=== PATIENT | male | born 1955 | race Two or more races ===

== ENCOUNTER 2022-01-28 16:31 | Inpatient (IN) | payer MEDICARE, BC ==
[2022-01-28] MEDS ORDERED: MIDAZOLAM 1 MG/ML 5 ML VIAL IV STA (16:39)
[2022-01-28] MEDS ORDERED: ROCURONIUM 10 MG/ML (5 ML VIAL) IV STA (16:40)
[2022-01-28] MEDS ORDERED: AMIODARONE 360 MG in DEXTROSE 5% IN WATER 200 ML IV ONE ×2 (17:00)
[2022-01-28 17:04] LABS: HCT 44.3 % (39.0-53.0); HGB 13.6 gm/dL (13.0-17.5); MCH 30.5 pg (25.0-35.0); MCHC 30.7 g/dL (31.0-37.0); MCV 99.1 fL (80.0-100.0); Mean Platelet Volume 9.3; Platelet Count 396 k/uL (150-450); RBC 4.47 m/uL (4.30-5.90); RDW 14.4 % (11.5-15.5); WBC 31.8 k/uL (3.8-10.6)
[2022-01-28 17:10] LABS: Albumin 3.1 g/dL (3.5-5.0); Calcium 8.7 mg/dL (8.4-10.2); INR 0.9 (<1.2); Partial Thromboplastin Time 23.1 sec (22.0-30.0); Potassium 3.5 mmol/L (3.5-5.1); Total Protein 5.6 g/dL (6.3-8.2)
[2022-01-28] MEDS: SODIUM CHLORIDE 0.9% 1,000 ML IV SCH ×2 (17:14→23:57)
[2022-01-28] MEDS ORDERED: cefTRIAXone IN SWFI 1,000 MG/10 ML SYRINGE IVP STA (17:18)
[2022-01-28] MEDS ORDERED: SODIUM CHLORIDE 0.9% 1,000 ML IV ONE (17:19)
[2022-01-28 17:23] LABS: Band Neutrophils % 6 %; Lymphocytes # (M) 3.18 k/uL (1.0-4.8); Monocytes # (M) 2.54 k/uL (0-1.0); Neutrophils % (M) 76 %; Nucleated Red Blood Cells 0 /100 WBC (0-0); Total Cells Counted 100
[2022-01-28 17:25] LABS: Hypochromasia Slight
[2022-01-28 17:38] LABS: ABG Base Excess -6.3 mmol/L; ABG HCO3 22 mmol/L (21-25); ABG Oxygen Saturation 99.7 % (94-97); ABG PCO2 56 mmHg (35-45); ABG PO2 303 mmHg (83-108); ABG TCO2 23 mmol/L (19-24); Allen Test Performed? Yes
--- NOTE | 2022-01-28 17:39 | XR ---
EXAMINATION TYPE: XR chest 1V portable DATE OF EXAM: 01/28/2022 COMPARISON: NONE HISTORY: Postintubation TECHNIQUE: Single view FINDINGS: Endotracheal tube is 5 cm from the ross. There is some mild infiltrate and atelectasis le ft lower lobe. Right lung is clear. No heart failure. There are chest leads. There is nasogastric tub e and the tip is overlying the distal esophagus. IMPRESSION: Nasogastric tube is not in the stomach. Distended gas-filled stomach. Mild infiltrate or atelectasis left lung base.
--- NOTE | 2022-01-28 18:11 | ED ---
General Adult HPI - General Chief complaint: Cardiac Arrest/CPR Stated complaint: Unresponsive Time Seen by Provider: 01/28/22 16:39 Source: family, EMS, RN notes reviewed, old records reviewed Mode of arrival: EMS Limitations: altered mental status, physical limitation - History of Present Illness Initial comments: 66-year-old male presenting for evaluation of cardiac arrest. Patient was found to be in ventricular fibrillations Paramedics upon arrival. His had initiated CPR with an unknown down time prior to initiating CPR, this may have been very short or upwards of 30 minutes. He had about 45 minute transport time. He received multiple defibrillations, epinephrine, amiodarone, magnesium during transport. He received compressions with the Rusty compression device. Patient did have several episodes of near complex rhythm with a pulse during transport. At the time of arrival he had a Tommie airway and was in sinus rhythm. Past medical history of peripheral vascular disease status post aortic bypass and left below the knee amputation. Remote history of tobacco use. The does not report any history of CAD. He had not been feeling well for several days. The did not report any chest pain. - Related Data Home Medications Medication Instructions Recorded Confirmed Acetaminophen [Tylenol 8 Hour] 650 - 1,300 mg PO Q8H PRN 01/28/22 01/28/22 Amitriptyline HCl [Elavil] 25 mg PO HS 01/28/22 01/28/22 Aspirin EC [Ecotrin Low Dose] 81 mg PO DAILY 01/28/22 01/28/22 Docusate [Colace] 100 mg PO DAILY 01/28/22 01/28/22 Ibuprofen [Motrin] 800 mg PO TID PRN 01/28/22 01/28/22 Tamsulosin [Flomax] 0.4 mg PO DAILY 01/28/22 01/28/22 amLODIPine [Norvasc] 10 mg PO DAILY 01/28/22 01/28/22 Allergies Allergy/AdvReac Type Severity Reaction Status Date / Time No Known Allergies Allergy Verified 01/28/22 19:19 Review of Systems ROS Statement: Those systems with pertinent positive or pertinent negative responses have been documented in the HPI. ROS Other: All systems not noted in ROS Statement are negative. Past Medical History Additional Past Medical History / Comment(s): prostate cx History of Any Multi-Drug Resistant Organisms: Unobtainable Past Surgical History: No Surgical Hx Reported Past Psychological History: No Psychological Hx Reported Smoking Status: Unknown if ever smoked Past Alcohol Use History: Unable to Obtain Past Drug Use History: Unable to Obtain - Past Family History Father Family Medical History: Hypertension General Exam Limitations: no limitations General appearance: obtunded Head exam: Present: atraumatic, normocephalic Eye exam: Present: normal appearance, PERRL ENT exam: Present: other (Tommie airway) Respiratory exam: Present: other (Agonal respirations bilateral breath sounds with BVM). Absent: respiratory distress Cardiovascular Exam: Present: regular rate, normal rhythm GI/Abdominal exam: Present: soft, distended. Absent: tenderness, guarding, rebound Extremities exam: Present: other (Left [id number] a petition). Absent: pedal edema Neurological exam: Present: other (Pupils are 3 mm and sluggish. There is no s pontaneous movement. No withdrawal to pain.) Skin exam: Present: warm, dry, intact. Absent: cyanosis, diaphoretic Course Vital Signs 01/28/22 01/28/22 01/28/22 16:32 16:35 16:51 Temperature 97.8 F Pulse Rate 103 H 115 H Pulse Rate [ 103 H Adult Literacy Instructor ] Respiratory 5 L 12 20 Rate Blood Pressure 150/93 153/88 O2 Sat by Pulse 98 100 Oximetry 01/28/22 01/28/22 01/28/22 18:18 18:42 20:00 Temperature 97.8 F Pulse Rate 107 H 97 93 Pulse Rate [ Adult Literacy Instructor ] Respiratory 22 22 22 Rate Blood Pressure 107/81 102/76 110/78 O2 Sat by Pulse 94 L 100 95 Oximetry EKG Findings - EKG Comments: EKG Findings:: EKG sinus tachycardia with PVC depression in the precordial leads no ST segment elevation. Rate of 106, MT interval 156, QRS duration 112 Procedures - Central Line Placement Right Femoral Consent Obtained: emergent situation Patient Placed on Monitor/Pulse Ox: Yes MD Prep: mask, gloves Central Line Prep: Chlorhexidine scrub, sterile drapes applied Ultrasound Used for Placement: Yes Central Line Lumen Inserted: triple Bloods Obtained for Lab: Yes Central Line Position: good blood return, all ports aspirated, flushed, capped, sutured in place with 3-0 nylon Dressing Applied: Tegaderm Patient Tolerated Procedure: well Complications: none - Intubation Sedative: Versed Mg Given: 5 Paralytic: Rocuronium Mg Given: 50 Laryngoscope: Nichol Size: 3 ET Tube Size: 7.5 ET Tube Uncuffed: No Tube Secured Depth (cm): 23 Tube Secured Location: lips Tube Placement Confirmation: visualized tube passing through cords, equal breath sounds bilaterally, no breath sounds over epigastrium, confirmation by capnometry Patient Tolerated Procedure: well Intubation Complications: none Medical Decision Making - Medical Decision Making 66-year-old male presenting with out of Hospital cardiac arrest. Down time roughly 45-60 minutes. Patient does have signs of life upon arrival. He is in a narrow complex rhythm with a stable blood pressure. He has rate sluggish but reactive pupils. He is initially breathing spontaneously. No purposeful movement. He was intubated upon arrival. Central line placed in the emergency department. He is continued on amiodarone. I discussed case at the onset with radiation oncology therapist Dr. Tejada and career center director Dr. Zamora. He does have signs of UTI with high white blood cell count. He is started on IV antibiotics. Additionally given the elevated troponin and ventricular fibrillation arrest he is started on heparin after head CT is negative for intracranial hemorrhage. He will be admitted to the ICU. - Lab Data Result diagrams: 01/29/22 02:25 01/29/22 02:25 Lab Results 01/28/22 01/28/22 01/28/22 Range/Units 16:43 16:43 16:43 WBC 31.8 H (3.8-10.6) k/uL RBC 4.47 (4.30-5.90) m/uL Hgb 13.6 (13.0-17.5) gm/dL Hct 44.3 (39.0-53.0) % MCV 99.1 (80.0-100.0) fL MCH 30.5 (25.0-35.0) pg MCHC 30.7 L (31.0-37.0) g/dL RDW 14.4 (11.5-15.5) % Plt Count 396 (150-450) k/uL MPV 9.3 Neutrophils % (Manual) 76 % Band Neuts % (Manual) 6 % Lymphocytes % (Manual) 10 % Monocytes % (Manual) 8 % Neutrophils # (Manual) 26.00 H (1.3-7.7) k/uL Lymphocytes # (Manual) 3.18 (1.0-4.8) k/uL Monocytes # (Manual) 2.54 H (0-1.0) k/uL Nucleated RBCs 0 (0-0) /100 WBC Manual Slide Review Performed Hypochromasia Slight PT 10.0 (9.0-12.0) sec INR 0.9 (<1.2) APTT 23.1 (22.0-30.0) sec Sample Site ABG pH (7.35-7.45) ABG pCO2 (35-45) mmHg ABG pO2 (83-108) mmHg ABG HCO3 (21-25) mmol/L ABG Total CO2 (19-24) mmol/L ABG O2 Saturation (94-97) % ABG Base Excess mmol/L Elan Test FiO2 % Sodium 132 L (137-145) mmol/L Potassium 3.5 (3.5-5.1) mmol/L Chloride 97 L (98-107) mmol/L Carbon Dioxide 16 L (22-30) mmol/L Anion Gap 19 mmol/L BUN 27 H (9-20) mg/dL Creatinine 1.30 H (0.66-1.25) mg/dL Est GFR (CKD-EPI)AfAm 65 (>60 ml/min/1.73 sqM) Est GFR (CKD-EPI)NonAf 56 (>60 ml/min/1.73 sqM) Glucose 584 H* (74-99) mg/dL Plasma Lactic Acid Jhon (0.7-2.0) mmol/L Calcium 8.7 (8.4-10.2) mg/dL Magnesium 4.0 H (1.6-2.3) mg/dL Total Bilirubin 1.0 (0.2-1.3) mg/dL AST 114 H (17-59) U/L ALT 57 H (4-49) U/L Alkaline Phosphatase 175 H (38-126) U/L Troponin I (0.000-0.034) ng/mL Total Protein 5.6 L (6.3-8.2) g/dL Albumin 3.1 L (3.5-5.0) g/dL Urine Color Urine Appearance (Clear) Urine pH (5.0-8.0) Ur Specific [place] (1.001-1.035) Urine Protein (Negative) Urine Glucose (UA) (Negative) Urine Ketones (Negative) Urine Blood (Negative) Urine Nitrite (Negative) Urine Bilirubin (Negative) Urine Urobilinogen (<2.0) mg/dL Ur Leukocyte Esterase (Negative) Urine RBC (0-5) /hpf Urine WBC (0-5) /hpf Urine WBC Clumps (None) /hpf Ur Squamous Epith Cells (0-4) /hpf Urine Mucus (None) /hpf 01/28/22 01/28/22 01/28/22 Range/Units 16:43 17:26 17:31 WBC (3.8-10.6) k/uL RBC (4.30-5.90) m/uL Hgb (13.0-17.5) gm/dL Hct (39.0-53.0) % MCV (80.0-100.0) fL MCH (25.0-35.0) pg MCHC (31.0-37.0) g/dL RDW (11.5-15.5) % Plt Count (150-450) k/uL MPV Neutrophils % (Manual) % Band Neuts % (Manual) % Lymphocytes % (Manual) % Monocytes % (Manual) % Neutrophils # (Manual) (1.3-7.7) k/uL Lymphocytes # (Manual) (1.0-4.8) k/uL Monocytes # (Manual) (0-1.0) k/uL Nucleated RBCs (0-0) /100 WBC Manual Slide Review Hypochromasia PT (9.0-12.0) sec INR (<1.2) APTT (22.0-30.0) sec Sample Site rrad ABG pH 7.20 L (7.35-7.45) ABG pCO2 56 H (35-45) mmHg ABG pO2 303 H (83-108) mmHg ABG HCO3 22 (21-25) mmol/L ABG Total CO2 23 (19-24) mmol/L ABG O2 Saturation 99.7 H (94-97) % ABG Base Excess -6.3 mmol/L Elan Test Yes FiO2 100 % Sodium (137-145) mmol/L Potassium (3.5-5.1) mmol/L Chloride (98-107) mmol/L Carbon Dioxide (22-30) mmol/L Anion Gap mmol/L BUN (9-20) mg/dL Creatinine (0.66-1.25) mg/dL Est GFR (CKD-EPI)AfAm (>60 ml/min/1.73 sqM) Est GFR (CKD-EPI)NonAf (>60 ml/min/1.73 sqM) Glucose (74-99) mg/dL Plasma Lactic Acid Jhon 2.3 H* (0.7-2.0) mmol/L Calcium (8.4-10.2) mg/dL Magnesium (1.6-2.3) mg/dL Total Bilirubin (0.2-1.3) mg/dL AST (17-59) U/L ALT (4-49) U/L Alkaline Phosphatase (38-126) U/L Troponin I 0.085 H* (0.000-0.034) ng/mL Total Protein (6.3-8.2) g/dL Albumin (3.5-5.0) g/dL Urine Color Urine Appearance (Clear) Urine pH (5.0-8.0) Ur Specific [place] (1.001-1.035) Urine Protein (Negative) Urine Glucose (UA) (Negative) Urine Ketones (Negative) Urine Blood (Negative) Urine Nitrite (Negative) Urine Bilirubin (Negative) Urine Urobilinogen (<2.0) mg/dL Ur Leukocyte Esterase (Negative) Urine RBC (0-5) /hpf Urine WBC (0-5) /hpf Urine WBC Clumps (None) /hpf Ur Squamous Epith Cells (0-4) /hpf Urine Mucus (None) /hpf 01/28/22 Range/Units 17:31 WBC (3.8-10.6) k/uL RBC (4.30-5.90) m/uL Hgb (13.0-17.5) gm/dL Hct (39.0-53.0) % MCV (80.0-100.0) fL MCH (25.0-35.0) pg MCHC (31.0-37.0) g/dL RDW (11.5-15.5) % Plt Count (150-450) k/uL MPV Neutrophils % (Manual) % Band Neuts % (Manual) % Lymphocytes % (Manual) % Monocytes % (Manual) % Neutrophils # (Manual) (1.3-7.7) k/uL Lymphocytes # (Manual) (1.0-4.8) k/uL Monocytes # (Manual) (0-1.0) k/uL Nucleated RBCs (0-0) /100 WBC Manual Slide Review Hypochromasia PT (9.0-12.0) sec INR (<1.2) APTT (22.0-30.0) sec Sample Site ABG pH (7.35-7.45) ABG pCO2 (35-45) mmHg ABG pO2 (83-108) mmHg ABG HCO3 (21-25) mmol/L ABG Total CO2 (19-24) mmol/L ABG O2 Saturation (94-97) % ABG Base Excess mmol/L Elan Test FiO2 % Sodium (137-145) mmol/L Potassium (3.5-5.1) mmol/L Chloride (98-107) mmol/L Carbon Dioxide (22-30) mmol/L Anion Gap mmol/L BUN (9-20) mg/dL Creatinine (0.66-1.25) mg/dL Est GFR (CKD-EPI)AfAm (>60 ml/min/1.73 sqM) Est GFR (CKD-EPI)NonAf (>60 ml/min/1.73 sqM) Glucose (74-99) mg/dL Plasma Lactic Acid Jhon (0.7-2.0) mmol/L Calcium (8.4-10.2) mg/dL Magnesium (1.6-2.3) mg/dL Total Bilirubin (0.2-1.3) mg/dL AST (17-59) U/L ALT (4-49) U/L Alkaline Phosphatase (38-126) U/L Troponin I (0.000-0.034) ng/mL Total Protein (6.3-8.2) g/dL Albumin (3.5-5.0) g/dL Urine Color Yellow Urine Appearance Turbid (Clear) Urine pH 5.5 (5.0-8.0) Ur Specific [place] 1.023 (1.001-1.035) Urine Protein 2+ H (Negative) Urine Glucose (UA) 4+ H (Negative) Urine Ketones Negative (Negative) Urine Blood Large H (Negative) Urine Nitrite Negative (Negative) Urine Bilirubin Negative (Negative) Urine Urobilinogen <2.0 (<2.0) mg/dL Ur Leukocyte Esterase Large H (Negative) Urine RBC 98 H (0-5) /hpf Urine WBC >182 H (0-5) /hpf Urine WBC Clumps Many H (None) /hpf Ur Squamous Epith Cells <1 (0-4) /hpf Urine Mucus Few H (None) /hpf Critical Care Time Critical Care Time: Yes Total Critical Care Time: 35 Disposition Clinical Impression: Cardiac arrest, Ventricular fibrillation, UTI (urinary tract infection) Disposition: ADMITTED IP TO THIS HOSP Is patient prescribed a controlled substance at d/c from ED?: No Time of Disposition: 19:05
[2022-01-28] MEDS ORDERED: METOPROLOL TARTRATE 5 MG/5 ML VIAL IVP STA (18:17)
[2022-01-28] MEDS ORDERED: NALOXONE 0.4 MG/ML 1 ML VIAL IV PRN (18:18)
[2022-01-28] MEDS ORDERED: MORPHINE SULFATE 4 MG/ML SYRINGE IV PRN (18:18)
[2022-01-28] MEDS ORDERED: ACETAMINOPHEN SUPPOSITORY 650 MG SUPP RECTAL PRN (18:18)
[2022-01-28] MEDS ORDERED: PANTOPRAZOLE 40 MG/10 ML VIAL IVP STA (18:19)
[2022-01-28 18:45] LABS: Appearance,Urine Turbid (Clear); Bilirubin,Urine Negative (Negative); Blood,Urine Large (Negative); Color,Urine Yellow; Glucose,Urine (UA) 4+ (Negative); Ketones,Urine Negative (Negative); Leukocyte Esterase,Urine Large (Negative); Mucus,Urine Few /hpf; Nitrite,Urine Negative (Negative); PH, Urine 5.5 (5.0-8.0); Protein,Urine 2+ (Negative); RBC,Urine 98 /hpf (0-5); Specific Gravity,Urine 1.023 (1.001-1.035); Squamous Epithelial Cell,Urine <1 /hpf (0-4); Urobilinogen,Urine <2.0 mg/dL (<2.0); WBC,Urine >182 /hpf (0-5)
--- NOTE | 2022-01-28 18:55 | CT ---
EXAMINATION TYPE: CT brain wo con DATE OF EXAM: 01/28/2022 COMPARISON: None HISTORY: s/p cardiac arrest CT DLP: 1137.4 mGycm Automated exposure control for dose reduction was used. Ventricles have normal size. There is no mass effect or midline shift. There is no sign of intracrani al hemorrhage. Calvarium is intact. There is normal aeration of the mastoid sinuses. IMPRESSION: Negative unenhanced head CT scan.
[2022-01-28] MEDS ORDERED: HEPARIN SODIUM 1,000 UN/ML (10ML VL) IV PRN (18:59)
[2022-01-28] MEDS ORDERED: HEPARIN SODIUM 1,000 UN/ML (10ML VL) IV ONE (18:59)
[2022-01-28] MEDS ORDERED: HEPARIN SOD,PORK IN 0.45% NACL 25,000 UNIT in 0.45% NACL 1 250ML.BAG IV SCH (19:45)
[2022-01-28 21:09] LABS: Glucose,Whole Blood 473 mg/dL (75-99)
[2022-01-28] MEDS ORDERED: INSULIN REGULAR 100 UNIT/ML VIAL (IV) IV ONE (21:15)
[2022-01-28 21:44] LABS: Glucose,Whole Blood 462 mg/dL (75-99)
[2022-01-28] MEDS ORDERED: LACTATED RINGERS 1,000 ML IV SCH (22:30)
[2022-01-28 22:39] LABS: Calcium 7.9 mg/dL (8.4-10.2); Potassium 3.6 mmol/L (3.5-5.1)
[2022-01-28] MEDS ORDERED: AMIODARONE 450 MG in DEXTROSE 5% IN WATER 250 ML IV SCH ×2 (23:00)
[2022-01-28] MEDS ORDERED: ASPIRIN 81 MG PO STA (23:03)
[2022-01-28 23:49] LABS: Glucose,Whole Blood 345 mg/dL (75-99)
[2022-01-29] MEDS ORDERED: INSULIN ASPART (NovoLOG) 100 UNIT/ML VIAL SQ SCH
[2022-01-29 00:21] VITALS: TEMP 97.5
[2022-01-29] MEDS ORDERED: LIDOCAINE-D5W PMX 2G/250ML 8 MG/ML IV ONE (00:25)
[2022-01-29] MEDS ORDERED: LIDOCAINE-D5W PMX 2G/250ML 2,000 MG in DEXTROSE/WATER 1 250ML.BAG IV SCH (00:30)
[2022-01-29] MEDS ORDERED: VANCOMYCIN IV PER PHARMACY 1 EACH MISC MISCELLANE PRN (00:30)
[2022-01-29] MEDS ORDERED: PIPERACILLIN-TAZOBACTAM 3.375 GM in SODIUM CHLORIDE 0.9% 100 ML IVPB SCH (01:00)
[2022-01-29] MEDS ORDERED: NOREPINEPHRINE 8 MG in SODIUM CHLORIDE 0.9% 250 ML IV SCH (01:00)
[2022-01-29] MEDS ORDERED: VANCOMYCIN 1,500 MG in SODIUM CHLORIDE 0.9% 250 ML IVPB ONE (01:00)
--- NOTE | 2022-01-29 01:04 | P.HPIM ---
History of Present Illness H&P Date: 01/28/22 The patient is a 66 -year-old male with a PMH of PVD s/p L BKA, aortic bypass, Type 2 DM, carotid artery stenosis, BPH, and recent UTI, poor f/u with physicians who was brought to the ED for cardiac arrest. The history obtained from the patient's via phone and the ED physician as the patient was intubated at the time of evaluation. The patient was reportedly found by the gasping for air in his bed at 3:45 PM. She previously saw him at 3:15 PM, when he was at his baseline. Upon discovering him, she immediately activated EMS and started CPR. The patient had nearly a 45 minute transport time during which he was intubated and received multiple defibrillations for V. fib/pulseless V. tach arrest and was given amiodarone, epinephrine, and IV magnesium. The patient's reports that he had not been feeling well over the past week and recently had a Benitez catheter removed. He had also complained of fever with chills at home The denied reports of chest discomfort or shortness of breath. EKG emergency room revealed sinus rhythm with PVCs at [address] segment depression noted in the precordial leads. CT brain in the emergency room was unremarkable. Chest x-ray revealed mild left lung base infiltrate. Laboratory evaluation was remarkable for troponin of 0.085, UA grossly abnormal, glucose 584, lactic acid 2.3, BUN 27, creatinine 1.3, and WBC count 31.8. Review of systems: Unable to perform, patient intubated Physical examination: General: non toxic, intubated male, no distress, appears at stated age, normal weight Derm: no unusual rashes/lesions no unusual ecchymoses, warm, dry Head: atraumatic, normocephalic, symmetric Eyes: Anicteric sclera, pupils equal round reactive to light ENT: Nose and ears atraumatic Neck: No thyromegaly, no cervical lymphadenopathy, trachea midline, supple Mouth: no lip lesion Cardiovascular: S1S2 reg, no murmur, positive posterior tibial pulse R-side, no edema, capillary refill less than 2 seconds Lungs: CTA bilateral, no rhonchi, no rales , no accessory muscle use Abdominal: soft, no appreciable organomegaly Ext: Unable to assess, patient sedated and intubated, no contractures Neuro: Patient groans on sternal rub Psych: Unable to assess Assessment/plan V-fib arrest, unclear etiology -Continue with ventilator bundle -Cardiology recommended amiodarone infusion along with heparin infusion -Empiric broad-spectrum antibiotics given with recent history of fever at home with UTI -Follow-up blood cultures -Trend troponin -Continue ICU level of care Chronic conditions: Type II DM, peripheral vascular disease, BPH -Insulin sliding scale and blood glucose monitoring DVT prophylaxis -Heparin infusion The patient is admitted with an anticipated greater than 2 midnight stay for evaluation of cardiac arrest CODE STATUS: Full Code Discussed with: , family Anticipated discharge date: 2-[address]: Home Past Medical History Past Medical History: Coronary Artery Disease (CAD), Hyperlipidemia, Hypertension, Prostate Disorder Additional Past Medical History / Comment(s): prostate cx?, L BKA, L groin bypass 2019, x smoker, History of Any Multi-Drug Resistant Organisms: None Reported Past Surgical History: No Surgical Hx Reported Past Anesthesia/Blood Transfusion Reactions: No Reported Reaction Smoking Status: Former smoker - Past Family History Father Family Medical History: Hypertension Medications and Allergies Home Medications Medication Instructions Recorded Confirmed Type Acetaminophen [Tylenol 8 Hour] 650 - 1,300 mg PO Q8H PRN 01/28/22 01/28/22 History Amitriptyline HCl [Elavil] 25 mg PO HS 01/28/22 01/28/22 History Aspirin EC [Ecotrin Low Dose] 81 mg PO DAILY 01/28/22 01/28/22 History Docusate [Colace] 100 mg PO DAILY 01/28/22 01/28/22 History Ibuprofen [Motrin] 800 mg PO TID PRN 01/28/22 01/28/22 History Tamsulosin [Flomax] 0.4 mg PO DAILY 01/28/22 01/28/22 History amLODIPine [Norvasc] 10 mg PO DAILY 01/28/22 01/28/22 History Allergies Allergy/AdvReac Type Severity Reaction Status Date / Time No Known Allergies Allergy Verified 01/28/22 19:19 Physical Exam Vitals: Vital Signs Temp Pulse Pulse Resp BP Pulse Ox 01/29/22 00:15 86 27 H 136/85 98 01/29/22 00:00 97.5 F L 66 29 H 113/84 99 01/28/22 23:45 78 29 H 86/57 100 01/28/22 23:30 66 16 98/66 100 01/28/22 23:15 76 26 H 96/81 100 01/28/22 23:00 84 29 H 111/71 99 01/28/22 22:40 97.8 F 81 32 H 107/73 100 01/28/22 22:30 84 28 H 86/60 98 01/28/22 22:20 85 29 H 99 01/28/22 22:10 79 19 99 01/28/22 22:00 78 29 H 102/75 99 01/28/22 21:50 80 01/28/22 21:41 86 01/28/22 20:00 97.8 F 93 22 110/78 95 01/28/22 18:42 97 22 102/76 100 01/28/22 18:18 107 H 22 107/81 94 L 01/28/22 16:51 115 H 20 153/88 100 01/28/22 16:35 97.8 F 103 H 12 150/93 98 01/28/22 16:32 103 H 5 L Intake and Output 01/28/22 01/28/22 01/29/22 14:59 22:59 06:59 Intake Total 1021.092 272.247 Output Total 350 100 Balance 671.092 172.247 Intake: IV 1000 260 Sodium Chloride 0.9% 1, 260 000 ml @ 130 mls/hr IV . Q7H42M [facility] Rx#:[id number] Sodium Chloride 0.9% 1, 1000 000 ml @ 999 mls/hr IV . Q1H1M [facility] Rx#:[id number] Intake, IV Titration .092 12.247 Amount propofoL 1,000 mg In .092 12.247 Empty Bag 1 bag @ 5 MCG/ KG/MIN 2.041 mls/hr IV . Q24H [facility] Rx#:[id number] Output: Urine 350 100 Other: Voiding Method Indwelling Catheter Indwelling Catheter Weight 68.039 kg 68.039 kg Results CBC & Chem 7: 01/29/22 02:25 01/29/22 02:25 Labs: Abnormal Lab Results - Last 24 Hours (Table) 01/28/22 01/28/22 01/28/22 Range/Units 16:43 16:43 16:43 WBC 31.8 H (3.8-10.6) k/uL MCHC 30.7 L (31.0-37.0) g/dL Neutrophils # (Manual) 26.00 H (1.3-7.7) k/uL Monocytes # (Manual) 2.54 H (0-1.0) k/uL ABG pH (7.35-7.45) ABG pCO2 (35-45) mmHg ABG pO2 (83-108) mmHg ABG O2 Saturation (94-97) % Sodium 132 L (137-145) mmol/L Chloride 97 L (98-107) mmol/L Carbon Dioxide 16 L (22-30) mmol/L BUN 27 H (9-20) mg/dL Creatinine 1.30 H (0.66-1.25) mg/dL Glucose 584 H* (74-99) mg/dL POC Glucose (mg/dL) (75-99) mg/dL Plasma Lactic Acid Jhon (0.7-2.0) mmol/L Calcium (8.4-10.2) mg/dL Magnesium 4.0 H (1.6-2.3) mg/dL AST 114 H (17-59) U/L ALT 57 H (4-49) U/L Alkaline Phosphatase 175 H (38-126) U/L Troponin I 0.085 H* (0.000-0.034) ng/mL Total Protein 5.6 L (6.3-8.2) g/dL Albumin 3.1 L (3.5-5.0) g/dL Urine Protein (Negative) Urine Glucose (UA) (Negative) Urine Blood (Negative) Ur Leukocyte Esterase (Negative) Urine RBC (0-5) /hpf Urine WBC (0-5) /hpf Urine WBC Clumps (None) /hpf Urine Mucus (None) /hpf 01/28/22 01/28/22 01/28/22 Range/Units 17:26 17:31 17:31 WBC (3.8-10.6) k/uL MCHC (31.0-37.0) g/dL Neutrophils # (Manual) (1.3-7.7) k/uL Monocytes # (Manual) (0-1.0) k/uL ABG pH 7.20 L (7.35-7.45) ABG pCO2 56 H (35-45) mmHg ABG pO2 303 H (83-108) mmHg ABG O2 Saturation 99.7 H (94-97) % Sodium (137-145) mmol/L Chloride (98-107) mmol/L Carbon Dioxide (22-30) mmol/L BUN (9-20) mg/dL Creatinine (0.66-1.25) mg/dL Glucose (74-99) mg/dL POC Glucose (mg/dL) (75-99) mg/dL Plasma Lactic Acid Jhon 2.3 H* (0.7-2.0) mmol/L Calcium (8.4-10.2) mg/dL Magnesium (1.6-2.3) mg/dL AST (17-59) U/L ALT (4-49) U/L Alkaline Phosphatase (38-126) U/L Troponin I (0.000-0.034) ng/mL Total Protein (6.3-8.2) g/dL Albumin (3.5-5.0) g/dL Urine Protein 2+ H (Negative) Urine Glucose (UA) 4+ H (Negative) Urine Blood Large H (Negative) Ur Leukocyte Esterase Large H (Negative) Urine RBC 98 H (0-5) /hpf Urine WBC >182 H (0-5) /hpf Urine WBC Clumps Many H (None) /hpf Urine Mucus Few H (None) /hpf 01/28/22 01/28/22 01/28/22 Range/Units 19:59 21:07 21:43 WBC (3.8-10.6) k/uL MCHC (31.0-37.0) g/dL Neutrophils # (Manual) (1.3-7.7) k/uL Monocytes # (Manual) (0-1.0) k/uL ABG pH (7.35-7.45) ABG pCO2 (35-45) mmHg ABG pO2 (83-108) mmHg ABG O2 Saturation (94-97) % Sodium (137-145) mmol/L Chloride (98-107) mmol/L Carbon Dioxide (22-30) mmol/L BUN (9-20) mg/dL Creatinine (0.66-1.25) mg/dL Glucose (74-99) mg/dL POC Glucose (mg/dL) 473 H 462 H (75-99) mg/dL Plasma Lactic Acid Jhon (0.7-2.0) mmol/L Calcium (8.4-10.2) mg/dL Magnesium (1.6-2.3) mg/dL AST (17-59) U/L ALT (4-49) U/L Alkaline Phosphatase (38-126) U/L Troponin I 1.130 H* (0.000-0.034) ng/mL Total Protein (6.3-8.2) g/dL Albumin (3.5-5.0) g/dL Urine Protein (Negative) Urine Glucose (UA) (Negative) Urine Blood (Negative) Ur Leukocyte Esterase (Negative) Urine RBC (0-5) /hpf Urine WBC (0-5) /hpf Urine WBC Clumps (None) /hpf Urine Mucus (None) /hpf 01/28/22 01/28/22 Range/Units 22:24 23:47 WBC (3.8-10.6) k/uL MCHC (31.0-37.0) g/dL Neutrophils # (Manual) (1.3-7.7) k/uL Monocytes # (Manual) (0-1.0) k/uL ABG pH (7.35-7.45) ABG pCO2 (35-45) mmHg ABG pO2 (83-108) mmHg ABG O2 Saturation (94-97) % Sodium (137-145) mmol/L Chloride (98-107) mmol/L Carbon Dioxide 18 L (22-30) mmol/L BUN 29 H (9-20) mg/dL Creatinine (0.66-1.25) mg/dL Glucose 409 H (74-99) mg/dL POC Glucose (mg/dL) 345 H (75-99) mg/dL Plasma Lactic Acid Jhon (0.7-2.0) mmol/L Calcium 7.9 L (8.4-10.2) mg/dL Magnesium (1.6-2.3) mg/dL AST (17-59) U/L ALT (4-49) U/L Alkaline Phosphatase (38-126) U/L Troponin I (0.000-0.034) ng/mL Total Protein (6.3-8.2) g/dL Albumin (3.5-5.0) g/dL Urine Protein (Negative) Urine Glucose (UA) (Negative) Urine Blood (Negative) Ur Leukocyte Esterase (Negative) Urine RBC (0-5) /hpf Urine WBC (0-5) /hpf Urine WBC Clumps (None) /hpf Urine Mucus (None) /hpf Microbiology - Last 24 Hours (Table) 01/28/22 17:31 Urine Culture - Preliminary Urine,Voided
--- NOTE | 2022-01-29 01:07 | P.PN ---
Progress Note - Text Progress Note Date: 01/29/22 CODE BLUE note Activated at 0016 for V. fib arrest. Arrived at the scene shortly after. The p atient had achieved ROSC following fibrillation with 120 J. No IV push medications were given. Total CPR of 30 seconds was performed. The patient's was informed. Cardiology was notified.
--- NOTE | 2022-01-29 01:09 | XR ---
EXAMINATION TYPE: XR chest 1V portable DATE OF EXAM: 01/29/2022 COMPARISON: NONE HISTORY: Cardiac arrest TECHNIQUE: Single view FINDINGS: Heart is normal. Lungs are clear of consolidation. There is endotracheal tube 6 cm from the ross. There is nasogastric tube in the stomach. There are no hilar masses. There are chest leads. IMPRESSION: No active cardiopulmonary disease. There is clearing of the pleural reaction left lung ba se compared to yesterday.
[2022-01-29 01:59] LABS: Glucose,Whole Blood 307 mg/dL (75-99)
[2022-01-29 02:04] LABS: ABG Base Excess -9.3 mmol/L; ABG HCO3 19 mmol/L (21-25); ABG Oxygen Saturation 92.8 % (94-97); ABG PCO2 46 mmHg (35-45); ABG PH 7.22 (7.35-7.45); ABG PO2 77 mmHg (83-108); ABG TCO2 20 mmol/L (19-24); Allen Test Performed? Yes
[2022-01-29] MEDS ORDERED: CISATRACURIUM 200 MG in SODIUM CHLORIDE 0.9% 180 ML IV SCH (02:30)
[2022-01-29] MEDS ORDERED: CISATRACURIUM 2 MG/ML 5 ML VIAL IV ONE ×2 (02:30→02:31)
[2022-01-29 02:44] LABS: Basophils % (A) 0 %; Eosinophils % (A) 0 %; HCT 48.5 % (39.0-53.0); HGB 15.2 gm/dL (13.0-17.5); Hypochromasia Moderate; Lymphocytes # (A) 0.9 k/uL (1.0-4.8); Lymphocytes % (A) 14 %; MCH 30.7 pg (25.0-35.0); MCHC 31.3 g/dL (31.0-37.0); Mean Platelet Volume 8.9; Monocytes # (A) 0.3 k/uL (0-1.0); Monocytes % (A) 5 %; Neutrophils % (A) 80 %; Platelet Count 270 k/uL (150-450); Poikilocytosis Slight; RBC 4.95 m/uL (4.30-5.90); RDW 14.6 % (11.5-15.5); WBC 6.2 k/uL (3.8-10.6)
[2022-01-29] MEDS ORDERED: VERAPAMIL 2.5 MG/ML 2 ML AMP ONE (02:49)
[2022-01-29] MEDS ORDERED: HEPARIN SODIUM 1,000 UN/ML (10ML VL) ONE (02:50)
--- NOTE | 2022-01-29 02:54 | P.CRDCN ---
History of Present Illness History of present illness: HISTORY OF PRESENTING ILLNESS Patient is a 66-year-old male with history of prostate cancer, concern of recent UTI, hypertension, PAD status post BKA as well as aortic bypass, diabetes queenie bullard type 2, carotid artery stenosis who presents secondary to cardiac arrest. Patient is intubated and sedated and therefore history is supplied by the chart. Patient was apparently at his baseline and then patient's found him approximately half hour later gasping for air and altered mental status and unresponsive with agonal breaths. EMS was called and CPR was given with approximately 45 minutes of transfer and number of CPR, amiodarone, epinephrine, magnesium and shocks were performed. By the time patient presented to the hospital patient was having continued PVCs however no further cardiac arrest and EKGs did not show any ST elevation and therefore no catheterization was recommen ded. Apparently patient had not been feeling well over the last week and recently had a Benitez catheter removed and had been complaining of fevers and chills at home. There is no reported chest pain or pressure. Initial workup showed white blood cell count 31, hemoglobin 13.6, sodium 132, bicarb 16, creatinine 1.3, glucose 584, magnesium 4.0, AST 114, ALP 57, alk phos 175, lactic acid 1 hour after arrival 2.3, urinalysis large leukocyte esterase and greater than 182 white blood cells, troponin initially 0.08, 1.1, 2.89. EKG showed sinus tachycardia, normal axis, nonspecific ST depressions, QTC 425. Patient was having some nonpurposeful movements and initially had been given paralytics to help with intubation. Has been sedated and without any purposeful movements. Patient was placed on a heparin drip and started on amiodarone drip. He did have recurrent episode of V. fib arrest and therefore cardioverted after very brief round of CPR. He was changed to lidocaine drip at 1 and then 2 however had recurrent ventricular ectopy and recurrent V. fib arrest. Therefore catheterization lab was activated. REVIEW OF SYSTEMS At the time of my exam: Unable to perform secondary to intubated and sedated PHYSICAL EXAMINATION Vital signs reviewed. CONSTITUTIONAL: No apparent distress, patient unresponsive, intubated and sedated HEENT: Head is normocephalic. Pupils are equal, round. Sclerae anicteric. Mucous membranes of the mouth are moist. No JVD. No carotid bruit. CHEST EXAMINATION: Lungs are clear to auscultation. No chest wall tenderness is noted on palpation or with deep breathing. HEART EXAMINATION: Regular rate and rhythm. S1, S2 heard. No murmurs, gallops or rub. ABDOMEN: Soft, nontender. Positive bowel sounds. EXTREMITIES: + BKA, no lower extremity edema and no calf tenderness. NEUROLOGIC EXAMINATION: Patient is unresponsive ASSESSMENT 1. Cardiac arrest due to V. fib with recurrent V. fib episodes 2. Non-STEMI questionable type I versus related to cardiac arrest 3. Diabetes mellitus type 2 4. PAD status post BKA, aortofemoral bypass 5. Urinary tract infection 6. Lactic acidosis 7. Hypertension 8. Acute on chronic kidney disease PLAN Patient with continued ventricular ectopy and recurrent episodes of ventricular tachycardia and V. fib. Initially there is no ST elevation and more recent studies have shown no significant benefit to early catheterization however given continued ventricular ectopy we will perform more urgent heart catheterization. Continue aspirin, heparin drip. Check 2-D echo. Prolonged multiple episodes of cardiac arrest and monitor neurologic progress. Prognosis guarded. Past Medical History Past Medical History: Coronary Artery Disease (CAD), Hyperlipidemia, Hypertension, Prostate Disorder Additional Past Medical History / Comment(s): prostate cx?, L BKA, L groin bypass 2019, x smoker, History of Any Multi-Drug Resistant Organisms: None Reported Past Surgical History: No Surgical Hx Reported Past Anesthesia/Blood Transfusion Reactions: No Reported Reaction Smoking Status: Former smoker - Past Family History Father Family Medical History: Hypertension Medications and Allergies Home Medications Medication Instructions Recorded Confirmed Type Acetaminophen [Tylenol 8 Hour] 650 - 1,300 mg PO Q8H PRN 01/28/22 01/28/22 History Amitriptyline HCl [Elavil] 25 mg PO HS 01/28/22 01/28/22 History Aspirin EC [Ecotrin Low Dose] 81 mg PO DAILY 01/28/22 01/28/22 History Docusate [Colace] 100 mg PO DAILY 01/28/22 01/28/22 History Ibuprofen [Motrin] 800 mg PO TID PRN 01/28/22 01/28/22 History Tamsulosin [Flomax] 0.4 mg PO DAILY 01/28/22 01/28/22 History amLODIPine [Norvasc] 10 mg PO DAILY 01/28/22 01/28/22 History Allergies Allergy/AdvReac Type Severity Reaction Status Date / Time No Known Allergies Allergy Verified 01/28/22 19:19 Physical Exam Vitals: Vital Signs Temp Pulse Pulse Resp BP Pulse Ox 01/29/22 02:15 130 H 40 H 151/89 01/29/22 02:00 142 H 45 H 45/33 01/29/22 01:45 90 35 H 103/65 98 01/29/22 01:30 98 33 H 86/57 97 01/29/22 01:15 68 6 L 79/53 99 01/29/22 01:00 67 27 H 79/57 99 01/29/22 00:45 73 27 H 79/53 99 01/29/22 00:30 70 25 H 76/58 99 01/29/22 00:20 72 27 H 102/67 98 01/29/22 00:15 86 27 H 136/85 98 01/29/22 00:00 97.5 F L 66 29 H 113/84 99 01/28/22 23:45 78 29 H 86/57 100 01/28/22 23:30 66 16 98/66 100 01/28/22 23:15 76 26 H 96/81 100 01/28/22 23:00 84 29 H 111/71 99 01/28/22 22:40 97.8 F 81 32 H 107/73 100 01/28/22 22:30 84 28 H 86/60 98 01/28/22 22:20 85 29 H 99 01/28/22 22:10 79 19 99 01/28/22 22:00 78 29 H 102/75 99 01/28/22 21:50 80 01/28/22 21:41 86 01/28/22 21:00 97.8 F 96 22 112/80 96 01/28/22 20:00 97.8 F 93 22 110/78 95 01/28/22 18:42 97 22 102/76 100 01/28/22 18:18 107 H 22 107/81 94 L 01/28/22 16:51 115 H 20 153/88 100 01/28/22 16:35 97.8 F 103 H 12 150/93 98 01/28/22 16:32 103 H 5 L Intake and Output 01/28/22 01/28/22 01/29/22 14:59 22:59 06:59 Intake Total 1021.092 539.497 Output Total 350 280 Balance 671.092 259.497 Intake: IV 1000 520 Sodium Chloride 0.9% 1, 520 000 ml @ 130 mls/hr IV . Q7H42M [facility] Rx#:[id number] Sodium Chloride 0.9% 1, 1000 000 ml @ 999 mls/hr IV . Q1H1M [facility] Rx#:[id number] Intake, IV Titration 21.092 19.497 Amount Lidocaine-D5w Pmx 2G/ 7.25 250Ml 2,000 mg In Dextrose/Water 1 250ml. bag @ 1 MG/MIN 7.5 mls/hr IV .Q24H [facility] Rx#: [id number] propofoL 1,000 mg In 21.092 12.247 Empty Bag 1 bag @ 5 MCG/ KG/MIN 2.041 mls/hr IV . Q24H [facility] Rx#:[id number] Output: Urine 350 280 Other: Voiding Method Indwelling Catheter Indwelling Catheter Weight 68.039 kg 68.039 kg Results 01/28/22 16:43 01/28/22 22:24 Cardiac Enzymes 01/28/22 01/28/22 01/28/22 Range/Units 16:43 16:43 19:59 AST 114 H (17-59) U/L Troponin I 0.085 H* 1.130 H* (0.000-0.034) ng/mL 01/28/22 Range/Units 22:24 AST (17-59) U/L Troponin I 2.890 H* (0.000-0.034) ng/mL Coagulation 01/28/22 Range/Units 16:43 PT 10.0 (9.0-12.0) sec APTT 23.1 (22.0-30.0) sec CBC 01/28/22 Range/Units 16:43 WBC 31.8 H (3.8-10.6) k/uL RBC 4.47 (4.30-5.90) m/uL Hgb 13.6 (13.0-17.5) gm/dL Hct 44.3 (39.0-53.0) % Plt Count 396 (150-450) k/uL Comprehensive Metabolic Panel 01/28/22 01/28/22 Range/Units 16:43 22:24 Sodium 132 L 137 (137-145) mmol/L Potassium 3.5 3.6 (3.5-5.1) mmol/L Chloride 97 L 105 (98-107) mmol/L Carbon Dioxide 16 L 18 L (22-30) mmol/L BUN 27 H 29 H (9-20) mg/dL Creatinine 1.30 H 1.14 (0.66-1.25) mg/dL Glucose 584 H* 409 H (74-99) mg/dL Calcium 8.7 7.9 L (8.4-10.2) mg/dL AST 114 H (17-59) U/L ALT 57 H (4-49) U/L Alkaline Phosphatase 175 H (38-126) U/L Total Protein 5.6 L (6.3-8.2) g/dL Albumin 3.1 L (3.5-5.0) g/dL Current Medications Generic Name Dose Route Start Last Admin Trade Name Freq PRN Reason Stop Dose Admin Acetaminophen 650 mg 01/28/22 18:18 Acetaminophen Suppository 650 Mg Supp RECTAL Q4HR PRN Fever And/ Or Mild Pain Artificial Tears 2 drops 01/29/22 04:00 Artificial Tears-Hypromellose Drops 15 Ml Btl BOTH EYES Q4HR [facility] Chlorhexidine Gluconate 15 ml 01/29/22 09:00 Chlorhexidine Gluconate 15 Ml Cup MUCOUS MEM BID [facility] Heparin Sodium (Porcine) 0 unit 01/28/22 18:59 Heparin Sodium 1,000 Un/Ml (10ml Vl) IV PER PROTOCOL PRN Low PTT Protocol Amiodarone HCl 450 mg/ 250 mls @ 16.667 mls/hr 01/28/22 23:00 01/28/22 22:34 Dextrose/Water IV 01/29/22 16:59 0.5 mg/min .Q15H [facility] 16.667 mls/hr Administration Protocol 0.5 MG/MIN Sodium Chloride 1,000 mls @ 130 mls/hr 01/28/22 16:45 01/28/22 23:57 Saline 0.9% IV 130 mls/hr .Q7H42M [facility] Administration Heparin Sodium/Sodium Chloride 250 mls @ 8.165 mls/hr 01/28/22 19:45 01/28/22 21:15 25,000 unit/ Sodium Chloride IV 12 units/kg/hr .Q24H [facility] 8.165 mls/hr Administration Protocol 12 UNITS/KG/HR Propofol 1,000 mg/ IV Solution 100 mls @ 2.041 mls/hr 01/28/22 16:50 01/28/22 23:52 IV 25 mcg/kg/min .Q24H [facility] 10.206 mls/hr Administration Protocol 5 MCG/KG/MIN Lidocaine HCl/Dextrose 2,000 250 mls @ 7.5 mls/hr 01/29/22 00:30 01/29/22 01:29 mg/ IV Solution IV 2 mg/min .Q24H [facility] 15 mls/hr Infusion 1 MG/MIN Piperacillin Sod/Tazobactam 100 mls @ 25 mls/hr 01/29/22 01:00 01/29/22 02:01 Sod 3.375 gm/ Sodium Chloride IVPB 25 mls/hr Q8H [facility] Administration Protocol Vancomycin HCl 1,500 mg/ 250 mls @ 125 mls/hr 01/29/22 01:00 01/29/22 01:00 Sodium Chloride IVPB 01/29/22 02:59 125 mls/hr ONCE ONE Administration Norepinephrine Bitartrate 8 mg 258 mls @ 6.583 mls/hr 01/29/22 01:00 01/29/22 02:22 / Sodium Chloride IV 0.1 mcg/kg/min .Q24H [facility] 13.166 mls/hr Administration Protocol 0.05 MCG/KG/MIN Cisatracurium Besylate 200 mg/ 200 mls @ 4.082 mls/hr 01/29/22 02:30 01/29/22 02:44 Sodium Chloride IV 1 mcg/kg/min .Q24H [facility] 4.082 mls/hr Administration Protocol 1 MCG/KG/MIN Insulin Aspart 0 unit 01/29/22 00:00 01/28/22 23:52 Insulin Aspart (Novolog) 100 Unit/Ml Vial SQ 6 unit Q4H [facility] Administration Protocol Miscellaneous Information 1 each 01/29/22 00:30 Vancomycin Iv Per Pharmacy 1 Each [facility] MISCELLANE DIRECTED PRN Per Protocol Protocol Morphine Sulfate 3 mg 01/28/22 18:18 01/28/22 21:29 Morphine Sulfate 4 Mg/Ml Syringe IV 3 mg Q2HR PRN Administration Pain Scale 6 to 7 Naloxone HCl 0.2 mg 01/28/22 18:18 Naloxone 0.4 Mg/Ml 1 Ml Vial IV Q2M PRN Opioid Reversal Intake and Output 01/28/22 01/28/22 01/29/22 14:59 22:59 06:59 Intake Total 1021.092 539.497 Output Total 350 280 Balance 671.092 259.497 Intake: IV 1000 520 Sodium Chloride 0.9% 1, 520 000 ml @ 130 mls/hr IV . Q7H42M [facility] Rx#:[id number] Sodium Chloride 0.9% 1, 1000 000 ml @ 999 mls/hr IV . Q1H1M [facility] Rx#:[id number] Intake, IV Titration 21.092 19.497 Amount Lidocaine-D5w Pmx 2G/ 7.25 250Ml 2,000 mg In Dextrose/Water 1 250ml. bag @ 1 MG/MIN 7.5 mls/hr IV .Q24H [facility] Rx#: [id number] propofoL 1,000 mg In 21.092 12.247 Empty Bag 1 bag @ 5 MCG/ KG/MIN 2.041 mls/hr IV . Q24H [facility] Rx#:[id number] Output: Urine 350 280 Other: Voiding Method Indwelling Catheter Indwelling Catheter Weight 68.039 kg 68.039 kg Patient Weight 01/29/22 06:59 Weight 68.039 kg 01/28/22 16:43 01/28/22 22:24
--- NOTE | 2022-01-29 03:05 | P.EN ---
Code Blue Note Activated a 0153 for V. tach arrest. Arrived on the scene shortly after. The patient was shocked with 120 J. CPR was performed. 150 mg of amiodarone bolus was administered with subsequent shock with 250 J with ROSC at 0158 with sinus tachycardia. Cardiology pressurised container filler was notified. Please refer to the code sheet for further details.
[2022-01-29 03:19] VITALS: PULSE 133; RESP 22
[2022-01-29] MEDS ORDERED: LIDOCAINE 1% PF 10 MG/ML (5 ML AMP) SQ ONE (03:20)
[2022-01-29] MEDS ORDERED: VERAPAMIL SYRINGE (5 MG/10 ML) INTRAARTER ONE (03:24)
[2022-01-29] MEDS: HEPARIN SODIUM 1,000 UN/ML (10ML VL) IV ONE ×6 (03:30→05:45)
[2022-01-29] MEDS ORDERED: IV FLUID CONTINUATION 1,000 ML IV ONE (03:31)
[2022-01-29] MEDS ORDERED: TICAGRELOR 90 MG TAB ONE (03:37)
[2022-01-29 03:39] LABS: Calcium 7.8 mg/dL (8.4-10.2); Potassium 3.9 mmol/L (3.5-5.1); Total Bilirubin 0.7 mg/dL (0.2-1.3); Total Protein 5.7 g/dL (6.3-8.2)
[2022-01-29] MEDS ORDERED: TICAGRELOR 90 MG TAB OG-TUBE ONE (03:45)
[2022-01-29] MEDS ORDERED: IOPAMIDOL-370 125ML BTL INJ ONE ×2 (03:53→05:04)
[2022-01-29] MEDS ORDERED: ARTIFICIAL TEARS-HYPROMELLOSE DROPS 15 ML BTL BOTH EYES SCH (04:00)
[2022-01-29] MEDS ORDERED: DEXTROSE 5% IN WATER 100 ML with AMIODARONE 150 MG IV ONE (05:27)
[2022-01-29] MEDS ORDERED: HEPARIN SODIUM 1,000 UN/ML (10ML VL) IV ONE (05:31)
[2022-01-29] MEDS ORDERED: EPINEPHrine (PF) 1 MG/ML AMP IV ONE (05:33)
[2022-01-29] MEDS ORDERED: PHENYLEPHRINE 10 MG/ML VIAL IV ONE (05:33)
[2022-01-29] MEDS ORDERED: PHENYLEPHRINE-0.9% NACL SYG 1,000 MCG/10 ML SYRINGE IV ONE (05:43)
[2022-01-29] MEDS ORDERED: IOPAMIDOL-370 100ML BTL INJ ONE (05:53)
[2022-01-29 06:30] LABS: ABG Base Excess -8.8 mmol/L; ABG HCO3 19 mmol/L (21-25); ABG Oxygen Saturation 81.8 % (94-97); ABG PCO2 48 mmHg (35-45); ABG PH 7.21 (7.35-7.45); ABG TCO2 21 mmol/L (19-24); Allen Test Performed? Yes
[2022-01-29 06:34] LABS: ABG PO2 51 mmHg (83-108)
--- NOTE | 2022-01-29 06:34 | P.PRCINT ---
Percutaneous Coronary Int. - Percutaneous Coronary Intervention Percutaneous Coronary Intervention: PROCEDURES PERFORMED: Left heart catheterization, bilateral coronary angiography, PCI proximal mid circumflex with a 2.5 x 18 mm Xience SUDHIR, post dilated proximally with a 3.5 NC balloon, PCI of the mid circumflex and OM1 with a 2.25 x 15 mm Xience SUDHIR and overlapping Rich 2.0 x 8mm SUDHIR, CPR with cardioversion x 4 INDICATION: Non-STEMI, cardiac arrest, frequent ventricular fibrillation HISTORY: Patient is pleasant 60-year-old male who presented with recent fevers, chills, urinary issues with previous kidney stones and Benitez catheters being placed. He had a cardiac arrest at home and was found to be in ventricular fibrillation and cardioversion and had approximately 45 minutes of downtime. He was found to have what elevated white blood cell count and urinary tract infection. He was treated with magnesium, amiodarone drip however continue to have ectopy and occasional ventricular fibrillation, ventricular tachycardia and was also tried on lidocaine with continued episode and therefore heart catheterization was recommended. PROCEDURE: After the risks, benefits and alternatives of the above mentioned procedure explained in detail with the patient's , informed consent was obtained. Patient was taken to the catheterization lab and prepped and draped in usual fashion. 1% lidocaine was used to anesthetize the right radial artery. A 6-[place] sheath was placed in the right radial artery using modified Seldinger technique. Left coronary angiography was performed with a 5-[place] JL 3.5 catheter and right coronary angiography was performed with a 5-[place] JR5 catheter in various views. A 5-[place] FR5 catheter was inserted into the left ventricle and pressure measurements were obtained. The RCA appeared to be a [employer] with collaterals which were well established. The circumflex had a 80% proximal lesion which was somewhat hazy and consideration of this being the culprit lesion. Therefore decision was made to perform PCI of the circumflex. A 6-[place] CLS 3.5 guide was used to engage left main. A 0.014 whisper wire was advanced into the distal OM1 branch. There was a small caliber OM 2 branch with a ambiguous cap which also had collaterals and briefly attempted to wire this however unsuccessful. Balloon angioplasty was performed with a 2.5 x 12 mm balloon. Next a 3.0 and then a 3.5 noncompliant balloon was used. There was noted to be decreased flow into the OM1 branch and this was thought possibly related to a pseudoaneurysm and accordion related to the extreme tortuosity of the proximal portion of OM1 takeoff. Therefore decision was made to stent the proximal circumflex with a 2.5 x 18 mm Xience SUDHIR. The proximal portion of the stent was postdilated with a 3.5 noncompliant balloon. When the wire was pulled there was still no flow into the OM1 branch. Therefore the OM1 branch was rewired. There was a lesion at the mid circumflex right before the bifurcation of the OM1 and this was predilated as well as a proximal OM1 stenosis with a serial 1.5, 2.25 balloons. Next a 2.25 x 15 mm Xience USDHIR was deployed from the mid circumflex into OM1. There was still a lesion at the distal end of the stent and therefore an additional 2.0 by 8mm Rich SUDHIR was deployed. During procedure patient did have V. fib arrest with frequent ventricular ectopy despite amiodarone bolus. Brief chest compressions were required and patient had cardioversion 4. The wire was pulled and final angiograms were performed. Intervention there was a proximal circumflex 80% stenosis and a proximal OM1 70% stenosis with SHIV 3 flow and post intervention there was less than 10% stenosis and SHIV-3 flow. There was mild 50 is 60% "pinching" of the AV groove circumflex felt best treated medically. The right radial sheath was left in place to be used as an arterial line. The patient tolerated the procedure well however was cardioverted 4 times and was still having frequent ventricular ectopy. Patient was transported back to the post catheterization holding area in stable condition. Conscious Sedation: Patient was monitored under the direct supervision of vision of myself for conscious sedation using Versed and fentanyl for a total duration of 155 minutes HEMODYNAMICS: Aorta: 107/56 GILBERT: 105/15, LVEDP 20 SELECTIVE CORONARY ARTERIOGRAPHY: LEFT MAIN: The left main is a large caliber vessel which bifurcates into the LAD and circumflex. There is no significant stenosis. LEFT ANTERIOR DESCENDING CORONARY ARTERY: LAD is a large caliber vessel which wraps around to the apex. There is a proximal LAD 30-40% stenosis and otherwise has mild luminal irregularities LEFT CIRCUMFLEX CORONARY ARTERY: Left circumflex is a moderate caliber vessel a proximal circumflex 80% stenosis, mid circumflex 70% stenosis at the level of bifurcation with OM1 branch, OM1 70% proximal stenosis. After OM1 there is a subtotal OM 2 within ambiguous stump. There are [id number] collaterals. RIGHT CORONARY ARTERY: The right coronary artery is a large caliber vessel which gives off a PDA and PLV branch and is the dominant vessel. There is proximal 100% RCA stenosis. FINAL IMPRESSION: 1. CAD as described above with 100% RCA stenosis, proximal circumflex 80% stenosis, mid circumflex 70% stenosis, OM1 70% stenosis, LAD 30-40% stenosis 2. Status post successful PCI proximal mid circumflex with a 2.5 x 18 mm Xience SUDHIR, post dilated proximally with a 3.5 NC balloon, PCI of the mid circumflex and OM1 with a 2.25 x 15 mm Xience SUDHIR and overlapping Mcneal 2.0 x 8mm SUDHIR 3. Elevated left-sided filling pressures. 4. V. fib arrest status post cardioversion 4 PLAN: 1. Aggressive risk factor modification per most recent ACC/AHA guidelines. 2. Continue dual antiplatelets with aspirin and Brilinta. 3. Initial consideration of an acute thrombus of the circumflex over circumflex be more like a chronic lesion with heavy calcification. Presentation may be consistent with sepsis causing increased ischemia and V. fib. Continue to attempt to treat medically. May consider future intervention of the RCA [employer] pending clinical course.
[2022-01-29] MEDS ORDERED: NITROGLYCERIN SL TABS 0.4 MG TAB SUBLINGUAL PRN (06:35)
[2022-01-29] MEDS ORDERED: ATROPINE SULFATE 0.1 MG/ML 10ML SYRINGE IV PRN (06:35)
[2022-01-29] MEDS ORDERED: MAG HYDROX/AL HYDROX/SIMETH 30 ML CUP PO PRN (06:35)
[2022-01-29] MEDS ORDERED: RX INFO: IV CONTRAST WAS GIVEN 1 EACH MISC MISCELLANE PRN (06:35)
[2022-01-29] MEDS ORDERED: ZOLPIDEM 5 MG TAB PO PRN (06:35)
[2022-01-29 06:48] VITALS: BP 118/64
[2022-01-29] MEDS ORDERED: ASPIRIN 81 MG PO SCH (09:00)
[2022-01-29] MEDS ORDERED: CHLORHEXIDINE GLUCONATE 15 ML CUP MUCOUS MEM SCH (09:00)
[2022-01-29] MEDS ORDERED: TICAGRELOR 90 MG TAB PO SCH (09:00)
--- NOTE | 2022-01-29 13:24 | P.DS ---
Providers Date of admission: 01/28/22 18:18 Expected date of discharge: 01/29/22 Attending physician: Joe Garcia MD Consults: 01/28/22 18:18 Consult Physician Stat Consulting Provider: Zelalem Tejada Consult Reason/Comments: Cardiac arrest with return of spontaneous circulation, ventricular fib Do you want consulting provider notified?: Already Contacted Consult Physician Urgent Consulting Provider: Rich Zamora Consult Reason/Comments: Cardiac arrest with return of spontaneous circulation, ventricular fib Do you want consulting provider notified?: Already Contacted 01/29/22 06:35 Consult Physician Routine Consulting Provider: [facility] Consult Reason/Comments: Post Interventional patient Do you want consulting provider notified?: Already Contacted [facility] Course: The patient is a 66 -year-old male with a PMH of PVD s/p L BKA, aortic bypass, Type 2 DM, carotid artery stenosis, BPH, and recent UTI, poor f/u with physicians who was brought to the ED for cardiac arrest. ED physician intubated the patient upon arrival. The patient was reportedly found by the gasping for air in his bed at 3:45 PM. She previously saw him at 3:15 PM, when he was at his baseline. Upon discovering him, she immediately activated EMS and started CPR. The patient had nearly a 45 minute transport time during which he was intubated and received multiple defibrillations for V. fib/pulseless V. tach arrest and was given amiodarone, epinephrine, and IV magnesium. The patient's reports that he had not been feeling well over the past week and recently had a Benitez catheter removed. He had also complained of fever with chills at home The denied reports of chest discomfort or shortness of breath. EKG emergency room revealed sinus rhythm with PVCs at [address] segment depression noted in the precordial leads. CT brain in the emergency room was unremarkable. Chest x-ray revealed mild left lung base infiltrate. Laboratory evaluation was remarkable for troponin of 0.085, UA grossly abnormal, glucose 584, lactic acid 2.3, BUN 27, creatinine 1.3, and WBC count 31.8. V-fib arrest, unclear etiology -Cardiology recommended amiodarone infusion along with heparin infusion. Empiric broad-spectrum antibiotics given with recent history of fever at home with UTI. Patient was taken to garage laborer and had 3 stents placed to LCx. Unfortunately, he kept coding, and early this morning prior to my evaluation. Chronic conditions: Type II DM, peripheral vascular disease, BPH Plan - Discharge Summary Discharge Rx Participant: Yes New Discharge Prescriptions: No Action Aspirin EC [Ecotrin Low Dose] 81 mg PO DAILY amLODIPine [Norvasc] 10 mg PO DAILY Docusate [Colace] 100 mg PO DAILY Amitriptyline HCl [Elavil] 25 mg PO HS Ibuprofen [Motrin] 800 mg PO TID PRN PRN Reason: Fever And/ Or Pain Acetaminophen [Tylenol 8 Hour] 650 - 1,300 mg PO Q8H PRN PRN Reason: Pain Tamsulosin [Flomax] 0.4 mg PO DAILY Discharge Medication List Acetaminophen [Tylenol 8 Hour] 650 - 1,300 mg PO Q8H PRN 01/28/22 [History] Amitriptyline HCl [Elavil] 25 mg PO HS 01/28/22 [History] Aspirin EC [Ecotrin Low Dose] 81 mg PO DAILY 01/28/22 [History] Docusate [Colace] 100 mg PO DAILY 01/28/22 [History] Ibuprofen [Motrin] 800 mg PO TID PRN 01/28/22 [History] Tamsulosin [Flomax] 0.4 mg PO DAILY 01/28/22 [History] amLODIPine [Norvasc] 10 mg PO DAILY 01/28/22 [History] Follow up Appointment(s)/Referral(s): Alvarez Rueda DO [Primary Care Provider] - 1-2 days Discharge Disposition: - Preliminary Cause of Preliminary Cause of : Coronary Artery Disease
[2022-01-29] MEDS ORDERED: VANCOMYCIN 1,500 MG in SODIUM CHLORIDE 0.9% 250 ML IVPB SCH (17:00)
[2022-01-29] MEDS ORDERED: ATORVASTATIN 80 MG TAB PO SCH (21:00)
== END 2022-01-29 09:31 | disposition expired | DRG 247 ==
LOC: EC 16:31 → 2SICU 18:18
PROVIDERS: ADMIT Family Medicine; ATTEND Family Medicine
PROC: 5A2204Z Restoration of Cardiac Rhythm, Single (ICD-10-PCS; 2022-01-29)
PROC: 06HM33Z Insertion of Infusion Device into Right Femoral Vein, Percutaneous Approach (ICD-10-PCS; 2022-01-29)
PROC: 02HV33Z Insertion of Infusion Device into Superior Vena Cava, Percutaneous Approach (ICD-10-PCS; 2022-01-29)
PROC: 0BH17EZ Insertion of Endotracheal Airway into Trachea, Via Natural or Artificial Opening (ICD-10-PCS; 2022-01-29)
PROC: 027036Z Dilation of Coronary Artery, One Artery with Three Drug-eluting Intraluminal Devices, Percutaneous Approach (ICD-10-PCS; principal; 2022-01-29 02:46)
PROC: 4A023N7 Measurement of Cardiac Sampling and Pressure, Left Heart, Percutaneous Approach (ICD-10-PCS; 2022-01-29 02:46)
PROC: B2111ZZ Fluoroscopy of Multiple Coronary Arteries using Low Osmolar Contrast (ICD-10-PCS; 2022-01-29 02:46)
PROC: 5A12012 Performance of Cardiac Output, Single, Manual (ICD-10-PCS; 2022-01-29 02:46)
DX: I21.4 Non-ST elevation (NSTEMI) myocardial infarction (principal); I47.2 Ventricular tachycardia; E87.2 Acidosis; N39.0 Urinary tract infection, site not specified; N17.9 Acute kidney failure, unspecified; I46.2 Cardiac arrest due to underlying cardiac condition; I49.01 Ventricular fibrillation; E11.22 Type 2 diabetes mellitus with diabetic chronic kidney disease; I12.9 Hypertensive chronic kidney disease with stage 1 through stage 4 chronic kidney disease, or unspecified chronic kidney disease; I25.10 Atherosclerotic heart disease of native coronary artery without angina pectoris; N40.0 Benign prostatic hyperplasia without lower urinary tract symptoms; N18.9 Chronic kidney disease, unspecified; E11.51 Type 2 diabetes mellitus with diabetic peripheral angiopathy without gangrene; I65.29 Occlusion and stenosis of unspecified carotid artery; I49.3 Ventricular premature depolarization; E78.5 Hyperlipidemia, unspecified; Z79.82 Long term (current) use of aspirin; Z79.899 Other long term (current) drug therapy; Z82.49 Family history of ischemic heart disease and other diseases of the circulatory system; Z85.46 Personal history of malignant neoplasm of prostate; Z87.891 Personal history of nicotine dependence; Z89.512 Acquired absence of left leg below knee
CPT/HCPCS: 31500; 36415; 36556; 36600; 70450; 71045; 80048; 80053; 81001; 82805; 83036; 83605; 83735; 84484; 85025; 85610; 85730; 87040; 87077; 87086; 87186; 92950; 93005; 93458; 94002; 96361; 96374; 96375; 99291